=== PATIENT | female | born 1995 | race Caucasian/White ===

== ENCOUNTER 2017-08-09 11:58 | Outpatient (CLI) | END 2017-08-09 11:59 | disposition short-term general hospital (02) | LOC: AMBL 11:58 | PROVIDERS: ATTEND Internal Medicine | DX: M54.5 Low back pain (principal); M79.604 Pain in right leg; R20.0 Anesthesia of skin; R53.1 Weakness; X50.9XXA Other and unspecified overexertion or strenuous movements or postures, initial encounter; Y93.F2 Activity, caregiving, lifting; Y92.129 Unspecified place in nursing home as the place of occurrence of the external cause; Y99.0 Civilian activity done for income or pay ==